=== PATIENT | female | born 1950 | race Caucasian/White ===

== ENCOUNTER 2017-11-26 00:25 | Day surgery (SDC) | payer MEDICARE, OTHER ==
[~2017-11-26] VITALS: Ht 165.1 cm; Wt 89.4 kg
[~2017-11-26 00:25] MED LIST: ASPI-1471 PO; ATOR10TA65 PO; BUPR300T56 PO; CALC-901 PO; CYA1000 PO; EZET10TA41 PO; FLAX100038 PO; HYDR-385 PO; KET10 PO; LISI-362 PO; LOR5/325 PO; MAGN250T26 PO; MAGN500C10 PO; MULT-27 PO; NAPR220C12 PO; OMEG-23 PO; OMEG500C7 PO; OMEP40CA48 PO; SERT20OR6 PO; THYR30TA21 PO; VENL150C3 PO; VIT-40 PO
[2017-11-26] MEDS ORDERED: PROPOFOL EMUL(*) 10MG/ML 20 ML 60 ML ONE (07:05)
[2017-11-26] MEDS ORDERED: LIDOCAINE MPF 1% 5 ML VIAL ONE (07:05)
--- NOTE | 2017-11-26 07:21 | Post Operative Progress Note ---
Post Operative Progress Note Date: Nov 26, 2017 Time: 08:58 Surgeon: lorri Anesthesia: dr ibarra Pre-Op Diagnosis: heartburn Post-Op Diagnosis: benign gastric polyps Procedure(s): egd with biopsy distal esophagus POLINA JAEGER MD Nov 26, 2017 07:21
--- NOTE | 2017-11-26 07:22 | Short(Outpt) Discharge Summary ---
Discharge Summary Reason for Hosp/Final Diag: (1) Heartburn Hospital Course & Plan: benign gastric polyps, ge junction at 36 cm distal esophagus biopsied. Departure Discharge to: Home Discharge Instructions Home Meds Reported Medications Cyanocobalamin (Vitamin B-12) (VITAMIN B-12) 1,000 Mcg Tablet, 1000 MCG PO DAILY 11/24/17 Sertraline Hcl (ZOLOFT) 100 Mg Tablet, 1 TAB PO HS, TAB 11/24/17 Thyroid,Pork (ARMOUR THYROID) 30 Mg Tablet, 30 MG PO DAILY 10/30/16 Naproxen Sodium (ALEVE) 220 Mg Capsule, 1-2 TAB PO PRN for PAIN, CAPSULE 10/30/16 Atorvastatin Calcium (ATORVASTATIN CALCIUM) 10 Mg Tablet, 1 TAB PO QDAY, TAB 10/30/16 [place]-3 Fatty Acids/Fish Oil (FISH OIL 1,000 MG SOFTGEL) 1 Each Capsule, 1 EACH PO HS, CAPSULE 10/30/16 Magnesium (MAGNESIUM) 250 Mg Tablet, 250 MG PO DAILY 10/30/16 Vit D3 & K/Berberine Hcl/Hops (OSTERA TABLET) 1 Each Tablet, 1 EACH PO QAM 07/21/14 Omeprazole (OMEPRAZOLE) 40 Mg Capsule.dr, 40 MG PO QAM 07/21/14 Bupropion Hcl (BUPROPION XL) 300 Mg Tab.er.24h, 300 MG PO QAM, #10 TAB TAKE 1 TABLET BY MOUTH EVERY DAY 07/21/14 Aspirin (ASPIR 81) 81 Mg Tablet.dr, 81 MG PO QHS, TAB 07/21/14 Mu-Vits-Min Th/Lycopene/Lutein (CENTRUM SILVER TABLET) 1 Each Tablet, 1 EACH PO QDAY 07/21/14 Calcium Citrate/Vitamin D3 (CALCIUM CITRATE - VIT D CAPLET) 1 Each Tablet, 1 EACH PO QHS 07/21/14 Lisinopril (LISINOPRIL) 10 Mg Tablet, 10 MG PO QHS 07/21/14 Discontinued Reported Medications Venlafaxine Hcl (VENLAFAXINE HCL ER) 150 Mg Cap.er.24h, 150 MG PO QHS 07/21/14 Diet: Regular Activity: As Tolerated POLINA JAEGER MD Nov 26, 2017 07:22
[2017-11-26 07:30] VITALS: BP 126/65
[2017-11-26] MEDS ORDERED: MIDAZOLAM 2 MG/2 ML VIAL IVP PRN (07:55)
[2017-11-26] MEDS ORDERED: NORMOSOL R SOLN(*) 1000 ML BAG 1,000 ML IV PRN (07:55)
[2017-11-26] MEDS ORDERED: LIDOCAINE/SOD BICARB 8.4% SYR ID ONE (07:55)
[2017-11-26 09:00] VITALS: BP 95/60
[2017-11-26 09:41] VITALS: BP 105/65
[2017-11-26 09:49] VITALS: BP 118/96
[2017-11-26 09:50] VITALS: BP 125/70
--- NOTE | 2017-11-26 11:40 | NACHTIGAL EGD ---
EVENT DATE: November 26, 2017 SURGEON: Mando Mott MD ANESTHESIOLOGIST: Marek Mayo MD ANESTHESIA: Sedation. PREOPERATIVE DIAGNOSIS Heartburn, family history of esophageal cancer. POSTOPERATIVE DIAGNOSIS Benign gastric polyps. PROCEDURE PERFORMED Esophagogastroduodenoscopy with biopsy of the distal esophagus. DESCRIPTION OF PROCEDURE The patient was placed in left lateral decubitus position and given intravenous sedation. A flexible gastroscope was inserted. The esophagus distended nicely , appeared to be normal. There was a distinct GE junction at 36 cm. We entered the stomach, which was empty. We passed through the pylorus to the second and third portions of the duodenum, which were normal. Duodenal bulb was normal. Pylorus was normal. Antrum was normal. In the body of the stomach , she had several small, less than 5 mm, polypoid projections in the body and the fundus of the stomach. Scope was retroflexed. I could not identify any fundic inflammation or irrigation. Scope was then slowly withdrawn. We did biopsy the distal esophagus to rule out Foley's esophagus, and then the procedure was terminated. MTDMeena
== END 2017-11-26 10:08 | disposition home or self-care (01) ==
LOC: OR 00:25
PROVIDERS: ATTEND Surgery
DX: K31.7 Polyp of stomach and duodenum (principal); Z80.0 Family history of malignant neoplasm of digestive organs
CPT/HCPCS: 00811; 43239; 88305; 88313; J2001; J2704

== ENCOUNTER → 2018-07-13 | Outpatient (CLI) | payer MEDICARE, OTHER ==
[~2018-07-13] MED LIST changes: +SERT-173 PO; -SERT20OR6 PO
--- NOTE | 2018-07-13 15:57 | RADIOLOGY IMAGING REPORT ---
FACILITY: [facility] - [place] PATIENT NAME: Symone Pierre : 1950 MR: [id number] V: [id number] EXAM DATE: ORDERING PHYSICIAN: MADISON JESUS TECHNOLOGIST: Location: [facility] - [place] Patient: Symone Pierre : 1950 Visit/Account:[id number] Date of Sevice: 07/13/2018 Exam type: LUMBAR SPINE 4 VIEWS History: Lumbar radiculopathy Comparison: None. Findings: There are five nonrib-bearing lumbar-type vertebral bodies present. There is no evidence of acute fr actures. At L5-S1 there is a 9 mm anterior listhesis of L5 with respect S1 which could be on a degenerative ba sis. There are moderate degenerative facet joint changes bilaterally at this level and moderate tasia re disc space narrowing. Mild disc space narrowing also noted at L1-2 and T11-12. Incidentally note d are surgical clips in the right upper quadrant of the abdomen IMPRESSION: 1. Spondylotic changes of the lumbar spine most prominent at L5-S1 as described above Report Dictated By: Erika Pedroza MD at 07/13/2018 3:49 PM Report E-Signed By: Erika Pedroza MD at 07/13/2018 3:52 PM WSN:[email or web address]
== END ==
LOC: RAD 14:47
PROVIDERS: ATTEND Nurse Practitioner Family
DX: M43.06 Spondylolysis, lumbar region (principal)
CPT/HCPCS: 72120

== ENCOUNTER → 2018-11-26 | Outpatient (CLI) | payer MEDICARE, OTHER ==
--- NOTE | 2018-11-26 15:44 | RADIOLOGY IMAGING REPORT ---
FACILITY: [facility] PATIENT NAME: MAINE MURRAY : [id number] MR: [id number] V: [id number] EXAM DATE: ORDERING PHYSICIAN: MADISON JESUS TECHNOLOGIST: Corin Werner PROCEDURE:BILATERAL DIGITAL SCREENING MAMMOGRAM WITH CAD ASSISTED INTERPRETATION & 3D TOMOSYNTHESIS COMPARISON:Prior mammograms 10/20/17, 09/17/16, 09/05/15, 08/23/14, 08/17/13, 07/13/12. INDICATIONS:SCREENING FINDINGS: Fibroglandular densities are scattered throughout the breasts. The parenchymal pattern has remained stable allowing for difference in mammographic technique & patient positioning. DIAGNOSTIC CATEGORY 1--NEGATIVE. RECOMMENDATIONS: ROUTINE MAMMOGRAM AND CLINICAL EVALUATION. IMPRESSION: BIRADS 1: Negative. No significant abnormality is seen. Dictated by: Erika Pedroza M.D. on 11/26/2018 at 15:30 Transcribed by: KRISTIN on 11/26/2018 at 15:36 Approved by: Erika Pedroza M.D. on 11/26/2018 at 15:43 [facility]
== END ==
LOC: MAMO 00:23
PROVIDERS: ATTEND Nurse Practitioner Family
DX: Z12.31 Encounter for screening mammogram for malignant neoplasm of breast (principal)
CPT/HCPCS: 77063; 77067

== ENCOUNTER → 2019-03-08 | Outpatient (CLI) | payer MEDICARE, OTHER ==
--- NOTE | 2019-03-08 14:27 | RADIOLOGY IMAGING REPORT ---
FACILITY: [facility] [place] PATIENT NAME: Symone Pierre : 1950 MR: [id number] V: [id number] EXAM DATE: ORDERING PHYSICIAN: MADISON JESUS TECHNOLOGIST: [place] [facility] [place]: Symone Pierre : 1950 Visit/Account:[id number] Date of Sevice: 03/08/2019 DEXA Scan Clinical history: Postmenopausal state. Comparison: DEXA scan from 12/12/2016. LUMBAR SPINE: The bone mineral density (BMD) measured from L1-L4 correlates with a Z-score of -1 and a T-score of - 1.8 which is osteopenia as defined by the World Health Organization. The corresponding risk of fract ure in the lumbar spine is 3-4 times increased compared with a young adult reference population. Thi s value has decrease by 1.8 % since the prior study. More than 5% change is considered significant. HIP: Bone mineral density (BMD) measured in the LEFT total hip region correlates with a Z-score -0.6 and a T-score of -1.4 which is osteopenia as defined by the World Health Organization. The corresponding risk of fracture in the hip is 2-3 times increased compared to a young adult reference population. Th is value has decrease by 1.9 % since the prior study. More than 5% change is considered significant. T score left femoral neck -1.3 Bone mineral density (BMD) measured in the Femoral Neck region measures 0.858 g/cm?. IMPRESSION: 1. Lumbar spine: Osteopenia. There has been 1.8% decrease in the bone mineral density since the pre vious exam. 2. Left Total Hip: Osteopenia. There has been 1.9% decrease in the bone mineral density since the p revious exam. 3. Femoral Neck: Bone Mineral Density is 0.858 g/cm? The next DEXA scan of this patient should include the following sites: L1-L4 and the left hip. FRAX? WHO Fracture Risk Assessment Tool link: <http://www.shef.ac.uk/FRAX/tool.jsp?locationValue=9> PLEASE NOTE: 1) The World Health Organization defines low BMD as follows: T-score Normal > -1 Osteopenia < -1 and > -2.5 Osteoporosis < -2.5 without fractures Established osteoporosis < -2.5 with fractures 2) In general, you may wish to consider: Diagnosis Treatment Follow-up DEXA Normal BMD Prevention 2-3 years Osteopenia Prevention/therapy 1-2 years Osteoporosis Therapy Yearly 3) Fracture risk estimated from the T-score is more accurate for vertebral fractures (often spontane ous) than for hip fractures. Report Dictated By: Erika Pedroza MD at 03/08/2019 2:22 PM Report E-Signed By: Erika Pedroza MD at 03/08/2019 2:24 PM WSN:[email or web address]
== END ==
LOC: RAD 01:24
PROVIDERS: ATTEND Nurse Practitioner Family
DX: M85.80 Other specified disorders of bone density and structure, unspecified site (principal)
CPT/HCPCS: 77080